=== PATIENT | male | born 2000 | race Caucasian/White ===

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

== ENCOUNTER 2021-06-29 19:21 | Emergency (ER) | payer SELFPAY ==
[2021-06-29 19:30] VITALS: BP 126/86
== END 2021-06-29 20:04 | disposition left against medical advice (07) ==
LOC: ED 19:21
DX: S91.332A Puncture wound without foreign body, left foot, initial encounter (principal); Z53.21 Procedure and treatment not carried out due to patient leaving prior to being seen by health care provider; W34.09XA Accidental discharge from other specified firearms, initial encounter; Y93.89 Activity, other specified; Y92.89 Other specified places as the place of occurrence of the external cause; Y99.8 Other external cause status